=== PATIENT | female | born 1960 | race American Indian/Alaskan Native ===

== ENCOUNTER 2018-03-27 09:38 | Outpatient (CLI) | payer MEDICARE ==
--- NOTE | 2018-03-27 15:21 | Mammography Report ---
BILATERAL DIGITAL SCREENING MAMMOGRAM with CAD: 03/27/18 CLINICAL: Routine screening. COMPARISON:None available. However, a prior mammogram was apparently done at [facility]. FINDINGS: The breasts are mostly fatty. Left lower inner asymmetries require comparison with the prior mammogram or additional imaging.No architectural distortion or suspicious calcifications.The right breast is negative. IMPRESSION: Left asymmetries requiring further evaluation. BI-RADS CATEGORY: 0 -- Additional Evaluation Required RECOMMENDATION: Comparison with a previous mammogram. We will attempt to obtain a prior mammogram for comparison. If we do not obtain a prior mammogram within 30 days, a revised report will be issued recommending a recall for additional imaging. Please be advised that the patient should not schedule an appointment for return until adequate time (at least 2 weeks) has passed for us to obtain the prior mammogram. ACR BI-RADS MAMMOGRAPHIC CODES: 0 = Needs additional imaging evaluation; 1 = Negative; 2 = Benign; 3 = Probably benign; 4 = Suspicious; 5 = Malignant; 6 = Known biopsy-proven malignancy COMMENT: 1. Dense breast tissue, i.e., adenosis, fibrocystic changes, etc., may obscure an underlying neoplasm. 2. Approximately 10% of cancers are not detected with mammography. 3. A negative mammography report should not delay biopsy if a clinically suspicious mass is present. COMMENT: Patient follow-up letters are generated via our [employer] application.
== END 2018-03-27 09:39 | disposition home or self-care (01) ==
LOC: MAMMO 09:38
PROVIDERS: ATTEND Internal Medicine
DX: Z12.31 Encounter for screening mammogram for malignant neoplasm of breast (principal); I10 Essential (primary) hypertension
CPT/HCPCS: 77067

== ENCOUNTER 2019-04-03 12:08 | Outpatient (CLI) | payer MEDICARE ==
--- NOTE | 2019-04-04 11:32 | Mammography Report ---
BILATERAL DIGITAL DIAGNOSTIC MAMMOGRAM WITH CAD -- 04/03/2019 LEFT LIMITED BREAST ULTRASOUND INDICATION: Follow-up left breast nodule. She is also due for routine screening. TECHNIQUE: Digital bilateral mammographic imaging was performed. Limited ultrasound was performed. T his examination was interpreted with the benefit of Computer-Aided Detection (CAD) analysis. COMPARISON: 04/09/2018 and 03/27/2018 FINDINGS: Breast Density: The breasts are almost entirely fatty. MAMMOGRAPHIC FINDINGS: There is no evidence of dominant mass, suspicious calcifications or architectu ral distortion in the right breast. The previously identified left lower inner circumscribed nodule i s not significantly changed. Bilateral benign calcifications. ULTRASOUND FINDINGS: Targeted ultrasound evaluation was performed of the area of interest. Ultrasou nd demonstrated an oval heterogeneous hypoechoic solid mass at 6:00 3 cm from the nipple measuring 8 x 6 x 7 mm. This compares to a measurement of 11 x 6 x 8 mm on the last exam. IMPRESSION: Benign left breast mass at 6:00 3 cm from the nipple and no other significant finding. Follow up recommendation: Routine yearly BI-RADS Category 2: Benign. A "normal" or negative report should not discourage follow up or biopsy of a clinically significant f inding. A written summary of these findings will be mailed to the patient. The patient will be entered into a mammography reporting system which will generate a reminder letter for the patient's next appointmen t at the appropriate interval. According to the [employer], yearly mammograms are recommended starting at age 40 and continuing as long as a woman is in good health. Breast MRI is recommended for women with an elizabeth roximately 20-25% or greater lifetime risk of breast cancer, including women with a strong family his tory of breast or ovarian cancer and women who have been treated for Hodgkin's disease. Signer Name: Ja Bar MD Signed: 04/04/2019 11:28 AM Workstation Name: [id number]
== END 2019-04-03 12:09 | disposition home or self-care (01) ==
LOC: MAMMO 12:08
PROVIDERS: ATTEND Internal Medicine
DX: N63.42 Unspecified lump in left breast, subareolar (principal); I10 Essential (primary) hypertension
CPT/HCPCS: 77066